=== PATIENT | female | born 1985 | race Asian ===

== ENCOUNTER 2017-04-01 11:14 | Emergency (ER) | payer OTHER ==
[2017-04-01 11:23] VITALS: PULSE 76; RESP 16; TEMP 98.2
--- NOTE | 2017-04-01 11:43 | EDPHY ---
H & P HPI/ROS: CHIEF COMPLAINT: Lightheadedness History by patient and her HISTORY OF PRESENT ILLNESS: 31-year-old otherwise healthy young woman presents complaining of intermittent episodes of lightheadedness which she describes feeling like she might pass out associated with some heaviness in her chest and feeling like she is suffocating. There are no associated palpitations and when her is checked her heart rate it has been normal. The symptoms are nonexertional they seem to occur more often in the late afternoon. She tries eating and drinking but this does not seem to make a difference. They are not associated with standing up too quickly or sitting down. They are not positional. Her notes when she is complaining of the symptoms she does not look like she is having trouble breathing, there is no diaphoresis or visible dyspnea. She has been eating and drinking without any problem but she does have some intermittent nausea. She denies any abdominal pain. This morning she had 3 episodes of loose watery stools. She denies any bloody diarrhea or bright red blood per rectum or hematemesis. 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 She denies any heavy vaginal bleeding she has no prior history of anemia. She denies and states they have been using condoms. 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 She is on her feet all day. However she denies any other stressors. REVIEW OF SYSTEMS: As in HPI, and all other systems reviewed and are negative Source: Patient - Personal History LMP (Females 10-55): 1-7 Days Ago - Medical/Surgical History Other PMH: none - Family History Significant Family History: No pertinent family hx - Social History Smoking Status: Never smoked - Physical Exam Exam: General Appearance: Alert, comfortable, well appearing. Eyes: Pupils equal and round no pallor or injection. ENT, Mouth: Mucous membranes moist. Respiratory: Normal, effort, lungs are clear to auscultation. No wheezes, rales or rhonchi. Cardiovascular: Regular rate and rhythm. S1, S2, no murmurs, rubs, gallops appreciated Gastrointestinal: Abdomen is soft and nontender, no masses, bowel sounds normal. Back: No CVA tenderness, no bony tenderness Neurological: Awake, alert and oriented x 3, no pronator drift, normal gait, no pronator drift Skin: Warm and dry, no rashes. Musculoskeletal: Neck is supple nontender. No deformities. Extremitie:s full range of motion, no edema Psychiatric: Patient has normal affect, there is no agitation. Constitutional: Initial Vital Signs Temperature (C) 36.8 C 04/01/17 11:20 Heart Rate 76 04/01/17 11:20 Respiratory Rate 16 04/01/17 11:20 Blood Pressure 104/62 04/01/17 11:20 O2 Sat (%) 99 04/01/17 11:20 O2 Delivery Mode Room Air Allergies/Adverse Reactions: No Known Allergies Allergy (Unverified 04/01/17 11:23) Home Medications: Medication Instructions Recorded Vit D And Calcium 04/01/17 Medical Decision Making - Diagnostics EKG Interpretation: Normal sinus rhythm at a rate of 65 with normal axis, normal intervals and no ST segment abnormalities, no evidence of delta wave, short SC, or Brugada syndrome. ED Course/Re-evaluation: 31-year-old woman presents with 2 weeks of intermittent lightheadedness and 1 day of diarrhea. ECG is unremarkable and the patient is not . She is hemodynamically stable with an unremarkable exam. Cause of her symptoms are unclear however there is no evidence of any significant systemic toxicity or acute cardiac or neurologic pathology at this time. I am recommending follow up with the primary care physician if her symptoms persist as well as conservative measures for her diarrhea. It is possible that her symptoms of lightheadedness were worse yesterday because she was developing this diarrheal illness. I discussed the patient her . - Data Points Laboratory Results: 04/01/17 12:00 Urine Test NEGATIVE Departure - Departure Disposition: Home, Routine, Self-Care Clinical Impression: Dizziness of unknown cause Diarrhea Qualifiers: Diarrhea type: unspecified type Qualified Code(s): R19.7 - Diarrhea, unspecified Condition: Good Instructions: Acute Diarrhea (ED), Lightheadedness (ED) Additional Instructions: You were seen by Dr. Arina Mancia today. You had a normal EKG and a negative test today. The cause of your dizziness and lightheadedness is unclear but may have been worse yesterday because you were developing diarrhea. To avoid dehydration make sure you drink plenty of fluids. You may eat you feel like. Follow up with her primary care physician if your symptoms persist. Return for any worsening or new concerns. Referrals: Han Cabello, [Primary Care Provider] - As per Instructions
--- NOTE | 2017-04-01 11:46 | CPEKG ---
Heart Rate: 65 RR Interval: 923 P-R Interval: 140 QRSD Interval: 60 QT Interval: 408 QTC Interval: 425 P [place]: 71 QRS [place]: 74 T Wave [place]: 41 EKG Severity - NORMAL ECG - EKG Impression: SINUS RHYTHM Electronically Signed By: Arina Mancia 01-Apr-2017 11:49:57
[2017-04-01 14:40] VITALS: BP 110/63; O2SAT 75
== END 2017-04-01 12:25 | disposition home or self-care (01) ==
LOC: CED 11:14
DX: R42 Dizziness and giddiness (principal); R19.7 Diarrhea, unspecified
CPT/HCPCS: 81025-PO